=== PATIENT | female | born 1960 | race Caucasian/White ===

== ENCOUNTER 2016-05-25 16:15 | Emergency (ER) | payer MEDICARE, OTHER ==
[2016-05-25] MEDS: KETOROLAC TROMETHAMINE 60 MG/2 ML VIAL IM ONE (16:58)
[2016-05-25 17:07] LABS: BASOPHILS % 0.2 (0.0-1.5); EOSINOPHILS % 0.4 % (0.0-6.8); LYMPHOCYTES # 1.6 # k/uL (0.6-4.0); MEAN CORPUSCULAR HEMOGLOBIN 27.9 pg (28.0-34.0); MONOCYTES # 0.3 # k/uL (0.0-0.9); MONOCYTES % 2.7 % (0.0-11.0); NEUTROPHILS # 9.5 # k/uL (1.4-7.7)
[2016-05-25] MEDS: ONDANSETRON HCL 4 MG TAB.RAPDIS PO ONE (17:15)
[2016-05-25 17:19] LABS: eGFR (African) > 60; eGFR (Non-African) > 60
[2016-05-25 18:06] VITALS: BP 128/70
--- NOTE | 2016-05-25 18:25 | ED Physician Documentation ---
Sore Throat/Dental Pain - HISTORIAN Historian: patient - HPI Stated Complaint: sore throat, vomiting Chief Complaint: Sore Throat Onset: days ago (last night) Associated Symptoms: fever, chills, sore throat, severe, congestion, R ear pain , L ear pain, other (body aches). denies: runny nose - ROS CONST: no problems CVS/RESP: none GI/: nausea, vomiting (x1) MS/SKIN/LYMPH: denies: muscle aches, rash, leg swelling, ankle swelling NEURO/PSYCH: none - PAST HX Past History: gum disease Other History: other (HTN, depression, GERD, arthritis ) Allergies/Adverse Reactions: Allergies Allergy/AdvReac Type Severity Reaction Status Date / Time codeine [Codeine] Allergy Verified 03/14/16 18:54 meperidine HCl [From Demerol] Allergy Verified 03/14/16 18:54 morphine Allergy Verified 03/14/16 18:54 Penicillins Allergy Verified 03/14/16 18:54 Home Medications: Ambulatory Orders Medication Instructions Recorded Lisinopril [Prinivil] 40 mg PO DAILY 01/24/13 Aspirin [Violette] 81 mg PO DAILY 07/19/14 Trazodone HCl [Desyrel] 200 mg PO HS 11/11/14 Amlodipine Besylate 10 mg PO DAILY u2 08/20/15 Cyclobenzaprine HCl [Flexeril] 2 tab PO DAILY 10/31/15 Hydrocodone/Acetaminophen 1 tab PO DIRECTED 10/31/15 [Hydrocodon-Acetaminophen 5-325] Metoprolol Succinate [Toprol XL] 1 tab PO HS 10/31/15 Omeprazole [Omeprazole] 1 tab PO DAILY 10/31/15 Baclofen [Lioresal] 10 mg PO TID PRN #30 tablet 11/10/15 Azithromycin [Zithromax] 250 mg PO DAILY #6 tablet 05/25/16 - SOCIAL HX Smoking History: cigarettes - FAMILY HX Family History: No - VITAL SIGNS Vital Signs: Vital Signs Temp Pulse Resp BP Pulse Ox 100.1 F H 104 H 16 128/70 94 05/25/16 17:45 05/25/16 17:45 05/25/16 17:45 05/25/16 17:45 05/25/16 17:45 - REVIEWED ASSESSMENTS Nursing Assessment Reviewed: Yes Vitals Reviewed: Yes ED Results Lab/Radiology - Lab Results Lab Results: Lab Results 05/25/16 05/25/16 16:55 16:55 WBC 11.60 K/ul K/ul (4.00-12.00) RBC 4.55 M/ul M/ul (3.90-5.20) Hgb 12.7 g/dL g/dL (12.0-16.0) Hct 39.6 % % (34.5-46.5) MCV 87.0 fl fl (80.0-100.0) MCH 27.9 pg L pg (28.0-34.0) MCHC 32.0 g/dL g/dL (30.0-36.0) RDW 13.1 % % (11.3-14.3) Plt Count 177 K/mm3 K/mm3 (130-400) Neut % (Auto) 81.7 % H % (39.0-79.0) Lymph % (Auto) 14.0 % L % (16.0-50.0) Beckham % (Auto) 2.7 % % (0.0-11.0) Eos % (Auto) 0.4 % % (0.0-6.8) Baso % (Auto) 0.2 (0.0-1.5) Neut # 9.5 # k/uL H # k/uL (1.4-7.7) Lymph # 1.6 # k/uL # k/uL (0.6-4.0) Beckham # 0.3 # k/uL # k/uL (0.0-0.9) Eos # 0.0 # k/uL # k/uL (0.0-0.6) Baso # 0.0 # k/uL # k/uL (0.0-0.5) Reactive Lymphs % 1.0 % % (0.0-5.0) Reactive Lymphs # 0.1 # k/uL # k/uL (0.0-0.8) Sodium 132 mmol/L L mmol/L (136-145) Potassium 3.9 mmol/L mmol/L (3.5-5.0) Chloride 92 mmol/L L mmol/L (98-110) Carbon Dioxide 31 mmol/L mmol/L (20-32) BUN 19 mg/dL mg/dL (10-26) Creatinine 1.0 mg/dL mg/dL (0.4-1.5) Estimated Creat Clear 95 Est GFR ( Amer) > 60 (60 - ) Est GFR (Non-Af Amer) > 60 (60 - ) Glucose 255 mg/dL H mg/dL (70-99) Calcium 9.7 mg/dL mg/dL (8.5-10.5) Total Bilirubin 0.7 mg/dL mg/dL (0.2-1.2) AST 15 U/L U/L (0-41) ALT 18 U/L U/L (0-45) Alkaline Phosphatase 105 U/L U/L (46-116) Total Protein 8.0 g/dL g/dL (6.0-8.5) Albumin 5.0 g/dL g/dL (3.0-5.5) - Orders Orders: ED Orders Category Date Time Status CBC/PLATELET/DIFF Routine Lab 05/25/16 16:55 Completed CMP Routine Lab 05/25/16 16:55 Completed INFLUENZA A&B Stat Lab 05/25/16 Uncollected Rapid Strep [GRP A STREP SCREEN] Stat Lab 05/25/16 Ordered Ketorolac Tromethamine [Toradol] Med 05/25/16 16:54 Discontinued 60 mg IM NOW ONE Ondansetron HCl Rapdis [Zofran Odt] Med 05/25/16 17:13 Discontinued 4 mg PO NOW ONE Sore throat Physical Exam - EXAM General Appearance: moderate distress Mouth/Throat: lips nml, gums nml, voice nml, no drooling, no air way problems, no thrush, membranes nml, pharyngeal erythema. No: tonsillar exudate Respiratory: no resp. distress, breath sounds nml CVS: reg. rate & rhythm, heart sounds nml Abdomen: soft, no organomegaly, normal bowel sounds, no abdominal bruit, no distension Extremities: non-tender, nml ROM Skin: normal color, warm/dry, NR, INT, PAL, DR Neuro/Psych: oriented x3, mood/affect nml Discharge Clincal Impression: Strep pharyngitis Prescriptions: Azithromycin [Zithromax] 250 mg PO DAILY #6 tablet Additional Instructions: Chloraseptic spray or lozenges as needed for throat pain. Warm salt water gargles as needed pain Increase your fluid intake juices, hot tea, non-caffeinated beverages If you are congested - You may want to try Vicks rub on your chest and/or feet Use a humidifier in the room where you sleep. You can also sit in a steam filled bathroom 1-2 times a day. Tylenol or Ibuprofen as needed for fever, pain and body aches. Home Medications: Ambulatory Orders Lisinopril [Prinivil] 40 mg PO DAILY 01/24/13 Aspirin [Violette] 81 mg PO DAILY 07/19/14 Trazodone HCl [Desyrel] 200 mg PO HS 11/11/14 Amlodipine Besylate 10 mg PO DAILY u2 08/20/15 Cyclobenzaprine HCl [Flexeril] 2 tab PO DAILY 10/31/15 Hydrocodone/Acetaminophen [Hydrocodon-Acetaminophen 5-325] 1 tab PO DIRECTED 10/31/15 Metoprolol Succinate [Toprol XL] 1 tab PO HS 10/31/15 Omeprazole [Omeprazole] 1 tab PO DAILY 10/31/15 Baclofen [Lioresal] 10 mg PO TID PRN #30 tablet 11/10/15 Azithromycin [Zithromax] 250 mg PO DAILY #6 tablet 05/25/16 Condition: Stable Disposition: 01 HOME, SELF-CARE Decision to Admit: NO Decision Time: 17:30
== END 2016-05-25 17:45 | disposition home or self-care (01) ==
LOC: ED 16:15
DX: J02.0 Streptococcal pharyngitis (principal)
CPT/HCPCS: 80053; 85025; 96372; 99283; J1885; A9270

== ENCOUNTER 2016-11-28 15:45 | Outpatient (CLI) | payer MEDICARE, OTHER ==
[2016-11-28 16:29] LABS: eGFR (African) > 60; eGFR (Non-African) > 60
== END 2016-11-28 15:46 ==
LOC: LAB 15:45
PROVIDERS: ATTEND Family Medicine
DX: E11.9 Type 2 diabetes mellitus without complications (principal); I10 Essential (primary) hypertension
CPT/HCPCS: 36415; 80048; 83036

== ENCOUNTER 2017-03-13 14:42 | Outpatient (CLI) | payer MEDICARE, OTHER ==
--- NOTE | 2017-03-13 16:20 | Diagnostic Imaging Report ---
[facility] [id number] [facility] [address] Report Submission Date: Mar 13, 2017 3:05:22 PM CDT Patient Study Name: PAL LANGLEY Date: Mar 13, 2017 2:56:05 PM CDT Modality Type: CR Gender: F Description: CHEST : 58 Institution: [facility] Physician: LAMAR CRAVEN - OP Examination: PA and lateral chest. History: Evaluate lung schneider. Comparison exam: None available for direct review Findings: PA lateral chest demonstrate a normal cardiac and mediastinal silhouette. No focal infiltrate. No blunting of the costophrenic margins. Osseous structures are appropriate for age. Cervical fixation hardware. Impression: No acute pulmonary process. Electronically signed on Mar 13, 2017 3:05:22 PM CDT by: Savage ARRIAGA
== END 2017-03-13 14:44 ==
LOC: LAB 14:42
PROVIDERS: ATTEND Family Medicine
DX: E11.9 Type 2 diabetes mellitus without complications (principal); J43.1 Panlobular emphysema
CPT/HCPCS: 36415; 71020; 83036

== ENCOUNTER 2017-03-16 22:48 | Emergency (ER) | payer MEDICARE, OTHER ==
[2017-03-16 23:14] VITALS: BP 172/87
[2017-03-16] MEDS ORDERED: KETOROLAC TROMETHAMINE 60 MG/2 ML VIAL IM ONE (23:21)
--- NOTE | 2017-03-16 23:26 | ED Physician Documentation ---
Upper Extremity Problem - HISTORIAN Historian: patient, child - HPI Stated Complaint: Shoulder pain Chief Complaint: Upper Extremity Problem Additional Information: c/o rt shoulder pain onset 1 yr ago hank guzmna has been in [facility] and out of alll meds-in process restatting them haskl taken naproxed in past w mixled relief. appears not consistently Location: R shoulder Onset: other (1yr- no new injuries and shoulder has been persistlent perhaps slightly worse past several days) Timing: still present, persistent since Duration: intermittent episodes (but fairly constant for 1 yr-NO ORTHO CONSUL) Where: home ([place]) Severity: moderate Associated Symptoms: denies: fever, chills, sweating, shortness of breath, difficulty breathing, chest pain Exacerbated By: change in position, exertion Relieved By: rest, positioning, other (naproxed - does not take narcoticsdue to prkobation bacause thats what put her in [facility] blefore) Quality: pain, tenderness, tingling - ROS CONST: no problems EYES/ENT: denies: problems with vision CVS/RESP: none. denies: chest pain, shortness of breath, palpitations GI/: none MS/SKIN/LYMPH: calf pain NEURO/PSYCH: headache - PAST HX Past History: none, diabetes Type 1, other (gerd) Other History: hypertension Allergies/Adverse Reactions: Allergies Allergy/AdvReac Type Severity Reaction Status Date / Time codeine [Codeine] Allergy Verified 03/14/16 18:54 meperidine HCl [From Demerol] Allergy Verified 03/14/16 18:54 morphine Allergy Verified 03/14/16 18:54 Penicillins Allergy Verified 03/14/16 18:54 Home Medications: Ambulatory Orders Medication Instructions Recorded Aspirin [Violette] 81 mg PO DAILY 07/19/14 Trazodone HCl [Desyrel] 200 mg PO HS 11/11/14 Amlodipine Besylate 10 mg PO DAILY u2 08/20/15 Metoprolol Succinate [Toprol XL] 1 tab PO HS 10/31/15 Omeprazole [Omeprazole] 1 tab PO DAILY 10/31/15 Budesonide/Formoterol Fumarate 10.2 gm IH DAILY 11/28/16 [Symbicort 160-4.5 Mcg Inhaler] - SOCIAL HX Smoking History: greater than 1 pack/day Alcohol Use: none Drug Use: none - FAMILY HX Family History: no significant history - VITAL SIGNS Vital Signs: Vital Signs Temp Pulse Resp BP Pulse Ox 98.3 F 81 20 172/87 97 03/16/17 23:00 03/16/17 23:00 03/16/17 23:00 03/16/17 23:00 03/16/17 23:00 - REVIEWED ASSESSMENTS Nursing Assessment Reviewed: Yes Vitals Reviewed: Yes ED Results Lab/Radiology - Orders Orders: ED Orders Category Date Time Status Ketorolac Tromethamine [Toradol] Med 03/16/17 23:21 Once 60 mg IM NOW ONE Upper Extremity Problem - EXAM General Appearance: mild distress, anxious Skin: warm/dry, normal color. No: cyanosis, diaphoresis, jaundice Shoulder Exam: No: non-tender (subjectively no sig swelling or color change) Elbow/Forearm Exam: normal inspection Wrist Exam: normal inspection, nodules CVS: reg rate & rhythm, heart sounds normal, equal pulses, no murmur Vascular: no vascular compromise. No: abnml capillary refill, pulse deficit Peripheral: sensation nml, motor nml. No: altered sensation Central: oriented X3, motor nml, sensation nml, mood/affect nml, cognition normal Respiratory: no resp. distress, breath sounds nml, right arm (and shoulder estela shoulder) Abdomen: non-tender Discharge Clincal Impression: chronic rt shoulder pain Referrals: Thom Schreiber MD [Primary Care Provider] - 2 Days Comments: see orthopedic surfgeon soon probably needS MRI Disposition: 01 HOME, SELF-CARE Decision to Admit: NO Decision Time: 23:35
== END 2017-03-16 23:40 | disposition home or self-care (01) ==
LOC: ED 22:48
DX: M25.511 Pain in right shoulder (principal)
CPT/HCPCS: 96372; 99283; J1885

== ENCOUNTER 2017-07-03 15:04 | Outpatient (CLI) | payer MEDICARE, OTHER | END 2017-07-03 15:05 | LOC: LAB 15:04 | PROVIDERS: ATTEND Family Medicine | DX: E11.9 Type 2 diabetes mellitus without complications (principal) | CPT/HCPCS: 36415; 83036 ==

== ENCOUNTER 2017-09-11 14:24 | Outpatient (CLI) | payer MEDICARE, OTHER | END 2017-09-11 14:25 | LOC: LAB 14:24 | PROVIDERS: ATTEND Family Medicine | DX: E11.9 Type 2 diabetes mellitus without complications (principal) | CPT/HCPCS: 36415; 83036 ==

== ENCOUNTER 2017-11-24 13:56 | Outpatient (CLI) | payer MEDICARE, OTHER | END 2017-11-24 13:58 | LOC: LAB 13:56 | PROVIDERS: ATTEND Family Medicine | DX: E11.9 Type 2 diabetes mellitus without complications (principal) | CPT/HCPCS: 36415; 83036 ==

== ENCOUNTER 2018-01-19 22:11 | Emergency (ER) | payer MEDICARE, OTHER ==
[2018-01-19] MEDS ORDERED: DOXYCYCLINE MONOHYDRATE 100 MG CAPSULE PO ONE (22:45)
[2018-01-19] MEDS ORDERED: HYDROcodone /APAP 5/325 1 EACH TABLET PO ONE (22:46)
--- NOTE | 2018-01-19 22:55 | ED Physician Documentation ---
General Adult - HISTORIAN Historian: patient - HPI Stated Complaint: "My left breast has a knot and it hurts". Chief Complaint: General Adult Additional Information: Feels like she has a baseball in left breast. Has had a mass there for years. For a week, the mass has been larger and she has felt sick. Has spent a lot of time in bed. She has felt so bad she has not bathed in a week. IDDM, with FSG 195 in the ER. Has felt feverish at times. No treatment attempted. N modifying factors or other associated signs. - ROS CONST: fever (feverish) - PAST HX Past History: other (IDDM, depression) Allergies/Adverse Reactions: Allergies Allergy/AdvReac Type Severity Reaction Status Date / Time codeine [Codeine] Allergy Verified 01/19/18 22:24 meperidine HCl [From Demerol] Allergy Verified 01/19/18 22:24 morphine Allergy Verified 01/19/18 22:24 Penicillins Allergy Verified 01/19/18 22:24 Home Medications: Ambulatory Orders Medication Instructions Recorded Aspirin [Violette] 81 mg PO DAILY 07/19/14 Trazodone HCl [Desyrel] 200 mg PO HS 11/11/14 Doxycycline Hyclate [Vibramycin] 100 mg PO Q12H #20 capsule 01/19/18 - SOCIAL HX Smoking History: cigarettes - FAMILY HX Family History: No - VITAL SIGNS Vital Signs: Vital Signs Temp Pulse Resp BP Pulse Ox 98.1 F 66 16 160/85 98 01/19/18 22:15 01/19/18 22:15 01/19/18 22:15 01/19/18 22:15 01/19/18 22:15 - REVIEWED ASSESSMENTS Nursing Assessment Reviewed: Yes Vitals Reviewed: Yes ED Results Lab/Radiology - Orders Orders: ED Orders Category Date Time Status Doxycycline Monohydrate [Vibramycin] Med 01/19/18 22:45 Once 100 mg PO NOW ONE HYDROcodone /APAP 5/325 [[place] 5/325] Med 01/19/18 22:46 Once 2 each PO NOW ONE General Adult Physical Exam - PHYSICAL EXAM GENERAL APPEARANCE: mild distress EENT: eye inspection normal, ENT inspection normal (except poor dentition) NECK: normal inspection RESPIRATORY: no resp distress, breath sounds normal CVS: reg rate & rhythm, heart sounds normal. No: tachycardia ABDOMEN: soft, normal bowel sounds, non-tender BACK: normal inspection SKIN: warm/dry, normal color, other (scattered abrasions feet and lower legs. Irregular 2-2.5 cm mass left breast with it's center point at 7 o'clock. Comedones scattered about distal breast on the left. ) NEURO: CN's nml as tested, motor nml, cognition normal Discharge Clincal Impression: Abscess of left breast Prescriptions: Doxycycline Hyclate [Vibramycin] 100 mg PO Q12H #20 capsule Referrals: Thom Schreiber MD [Primary Care Provider] - 2 Days Condition: Fair Disposition: HOME, SELF-CARE Decision to Admit: NO Decision Time: 23:00
[2018-01-19 23:18] VITALS: BP 131/77
== END 2018-01-19 23:10 | disposition home or self-care (01) ==
LOC: ED 22:11
DX: N61.1 Abscess of the breast and nipple (principal)
CPT/HCPCS: 99283; A9270-GY

== ENCOUNTER 2018-01-24 14:07 | Outpatient (CLI) | payer MEDICARE, OTHER | END 2018-01-24 14:10 | LOC: LAB 14:07 | PROVIDERS: ATTEND Family Medicine | DX: E11.9 Type 2 diabetes mellitus without complications (principal) | CPT/HCPCS: 36415; 83036 ==

== ENCOUNTER 2018-03-30 18:09 | Inpatient (IN) | payer MEDICARE, OTHER ==
--- NOTE | 2018-03-30 18:32 | ED Physician Documentation ---
Abscess - HISTORIAN Historian: patient - HPI Stated Complaint: Left breast abscesses Chief Complaint: Abscess Additional Information: Patient with a past medical history of DM2, HTN presented to ED with a 2 month history of left breast cellulitis with abscesses. Patient states she has completed a course of Clindamycin and Doxycycline over the past 2 moths. She states she completed doxycycline about 2 weeks ago. Patient states the antibiotics help initially but the redness in her left breast never has gone away. She reports fever 102.0. Onset: days ago (60) Timing: still present Duration: worse Location: other (left breast) Where: home Context: Medication Exposure: none Context: Food Exposure: none - ROS CONST: fever, chills CVS/RESP: none. denies: chest pain, shortness of breath EYES/ENT: none GI/: denies: vomiting, nausea MS/SKIN/LYMPH: denies: rash NEURO/PSYCH: denies: headache - PAST HX Past History: diabetes Type 2, hypertension Other History: other (chronic bells palsy) Surgeries/Procedures: Yes (multiple ortho) Allergies/Adverse Reactions: Allergies Allergy/AdvReac Type Severity Reaction Status Date / Time codeine [Codeine] Allergy Verified 01/19/18 22:24 meperidine HCl [From Demerol] Allergy Verified 01/19/18 22:24 morphine Allergy Verified 01/19/18 22:24 Penicillins Allergy Verified 01/19/18 22:24 Home Medications: Ambulatory Orders Medication Instructions Recorded Aspirin [Violette] 81 mg PO DAILY 07/19/14 Albuterol Sulfate [Ventolin HFN] 2.5 inh PO Q4-6 03/30/18 Trazodone HCl 100 mg PO HS 03/30/18 - SOCIAL HX Smoking History: cigarettes, greater than 1 pack/day - FAMILY HX Family History: none - VITAL SIGNS Vital Signs: Vital Signs Temp Pulse Resp BP Pulse Ox 131/77 01/19/18 22:55 - REVIEWED ASSESSMENTS Nursing Assessment Reviewed: Yes Vitals Reviewed: Yes Progress - Progress Progress: 1838 Discussed with Jia ORDAZ with Dr. Schreiber. Agrees with admission. ED Results Lab/Radiology - Orders Orders: ED Orders Category Date Time Status Place IV Lock 1T Care 03/30/18 18:27 Active BLOOD CULTURE Stat Lab 03/30/18 Ordered CMP Routine Lab 03/30/18 Ordered WOUND CULTURE Urgent Lab 03/30/18 Uncollected Vancomycin HCl [Vancocin] 1.25 gm Med 03/30/18 18:43 Active 0.9 % Sodium Chloride [Normal Saline] 500 ml IV NOW Abscess Physical Exam - EXAM General Appearance: no acute distress, alert Skin: abscess (2- draining), erythema Location: other (left breast just below nipple) Symptoms: warmth, tenderness, swelling, induration, thickening, well defined border, weeping Extremities: no edema EENT: eyes nml inspection Neck: No: stiff neck, lymphadenopathy Respiratory: no resp distress, chest non-tender, breath sounds normal CVS: reg. rate & rhythm, heart sounds nml Abdomen: non-tender, nml bowel sounds. No: tenderness Neuro/Psych: oriented x3, motor nml Discharge Clincal Impression: Cellulitis of left breast, Left breast abscess, Failure of outpatient treatment Condition: Stable Disposition: ADMITTED INPATIENT Decision to Admit: [id number] Date of Decison to Admit: 03/30/18 Decision Time: 18:39
[2018-03-30] MEDS ORDERED: VANCOMYCIN HCL 1.25 GM in 0.9 % SODIUM CHLORIDE 500 ML IV ONE (18:43)
[2018-03-30] MEDS ORDERED: ONDANSETRON HCL/PF 4 MG/ 2ML VIAL IVP PRN (18:51)
[2018-03-30] MEDS: 0.9 % SODIUM CHLORIDE 1,000 ML IV SCH (19:07)
[2018-03-30 19:25] LABS: BASOPHILS % 0.3 (0.0-1.5); MEAN CORPUSCULAR HEMOGLOBIN 27.2 pg (28.0-34.0); MONOCYTES % 4.6 % (0.0-11.0); NEUTROPHILS # 4.7 # k/uL (1.4-7.7)
[2018-03-30] MEDS ORDERED: KETOROLAC TROMETHAMINE 30 MG/1ML VIAL IVP PRN (19:47)
[2018-03-30 19:49] LABS: eGFR (Non-African) > 60
[2018-03-30] MEDS ORDERED: traMADol HCL 50 MG TABLET ONE (20:49)
[2018-03-30] MEDS: ACETAMINOPHEN 325 MG TABLET PO PRN (20:55)
[2018-03-30] MEDS: traMADol HCL 50 MG TABLET PO PRN (20:55)
[2018-03-30] MEDS ORDERED: INSULIN DETEMIR 100 UNIT/ML 3ML PEN.INJCTR SQ SCH (21:00)
[2018-03-30] MEDS ORDERED: HEPARIN SODIUM 5000 UNIT/1 ML SQ SCH (21:00)
[2018-03-30] MEDS ORDERED: INSULIN REGULAR, HUMAN 100 UNIT/ML 3ML VIAL SQ SCH (21:00)
[2018-03-30] MEDS: traZODone HCL 50 MG TABLET PO SCH (22:46)
[2018-03-30] MEDS: DULoxetine HCL 30 MG CAPSULE.DR PO SCH (22:46)
[2018-03-30] MEDS: ENOXAPARIN SODIUM 40 MG/0.4 ML DISP.SYRIN SQ SCH (23:15)
[2018-03-30] MEDS: METOPROLOL SUCCINATE 50 MG TAB.ER.24H PO SCH (23:16)
[2018-03-30] MEDS: VANCOMYCIN HCL 1 GM in 0.9 % SODIUM CHLORIDE 250 ML IV SCH (23:17)
[2018-03-30] MEDS: VANCOMYCIN PHARMACY TO DOSE IV SCH (23:19)
[2018-03-30] MEDS: ceFAZolin SODIUM 1 GM VIAL IVP SCH ×2 (23:20→23:51)
[2018-03-30] MEDS: INSULIN REGULAR, HUMAN 100 UNIT/ML 3ML VIAL SQ SCH (23:22)
[2018-03-30] MEDS: INSULIN GLARGINE,HUM.REC.ANLOG 100 UNIT/ML PEN.INJCTR SQ SCH (23:44)
[2018-03-31 02:23] VITALS: BMI 35.9
[2018-03-31] MEDS: traMADol HCL 50 MG TABLET PO PRN ×3 (06:03→21:54)
[2018-03-31] MEDS: ACETAMINOPHEN 325 MG TABLET PO PRN ×3 (06:03→21:54)
[2018-03-31] MEDS: PANTOPRAZOLE SODIUM 40 MG TABLET.DR PO SCH (06:07)
[2018-03-31] MEDS: ceFAZolin SODIUM 1 GM VIAL IVP SCH ×3 (06:08→17:30)
[2018-03-31] MEDS: 0.9 % SODIUM CHLORIDE 1,000 ML IV SCH ×2 (06:12→19:32)
[2018-03-31 07:41] LABS: BASOPHILS % 0.3 (0.0-1.5); EOSINOPHILS % 3.3 % (0.0-6.8); MONOCYTES % 5.2 % (0.0-11.0); NEUTROPHILS # 3.5 # k/uL (1.4-7.7)
[2018-03-31] MEDS: INSULIN REGULAR, HUMAN 100 UNIT/ML 3ML VIAL SQ SCH ×4 (07:48→13:11)
[2018-03-31 07:51] LABS: eGFR (Non-African) > 60
[2018-03-31] MEDS: INSULIN GLARGINE,HUM.REC.ANLOG 100 UNIT/ML PEN.INJCTR SQ SCH ×2 (08:23→22:03)
[2018-03-31] MEDS: CITALOPRAM HYDROBROMIDE 20 MG TABLET PO SCH (08:29)
[2018-03-31] MEDS: ASPIRIN 81 MG CHEW TAB PO SCH (08:29)
[2018-03-31] MEDS: ARIPIPRAZOLE 2 MG TABLET PO SCH (08:29)
[2018-03-31] MEDS: FLUTICASONE PROPIONATE 120 SPRAY/16 GR BOTTLE NS SCH ×2 (08:30→21:55)
[2018-03-31] MEDS: CYCLOBENZAPRINE HCL 5 MG TABLET PO SCH (08:30)
[2018-03-31] MEDS: ENOXAPARIN SODIUM 40 MG/0.4 ML DISP.SYRIN SQ SCH ×2 (08:31→21:55)
[2018-03-31] MEDS: amLODIPine BESYLATE 5 MG TABLET PO SCH (08:31)
[2018-03-31] MEDS: HYDROCHLOROTHIAZIDE 25 MG TABLET PO SCH (08:31)
[2018-03-31] MEDS: VANCOMYCIN PHARMACY TO DOSE IV SCH (10:22)
--- NOTE | 2018-03-31 10:22 | History and Physical Report ---
History of Present Illnes - History of Present Illness Reason for Visit: Cellulitis - failed outpatient therapy History of Present Illness: 57 year old female presented to the ER for draining abscess of her left breast. She states she has had symptoms for the last 1 month. She has had two rounds of antibiotics as an outpatient. She states at the beginning of February she was started on Doxycycline for 10 days. She states she completed the course and was doing a little better but notes the area was still draining and red. She sates she was seen again and started on Clindamycin for 10 days. She notes she finished that course of antibiotics a few days ago and thinks that the redness is still continuing to spread. She states she had a fever off and on initially but has not had a fever since being on the antibiotics. She sates last night the pain in her breast was really bothering her and that was really what brought her in today. She has a history of hidradenitis suppurativa and gets abscesses frequently. She states this infection started as a very small abscess under her breast and now is completely surrounding her left areola with redness spreading up her breast. She notes she is diabetic. She states her blood sugars have been fairly well controlled she states usually run in the low 200s with the highest reading in the last two weeks being around 260. She notes a history of HTN but states her blood pressures are well controlled on medication. She has had a flu shot for the immunization season. She denies any fever, chills, nausea, vomiting or other concerns today. - Past Medical History Cardiac: HTN ORGANIZATION DEVELOPMENT CONSULTANT: Other ( stenosis of the cervical spine) Psych: Anxiety, Depression Endocrine: Diabetes Dermatology: Other (Hidradenitis suppurativa) - Past Surgical History Past Surgical History: Cholecystectomy, (x3), Total Knee Replacement (Right), Other (cervical fusion) - Past Social History Smoke: 1 pack per day Alcohol: Occassional Lives: Alone (with dog) - Health Maintenance Health Maintenance: Influenza Vaccine (current for this season) Pneumonia Vaccine: No Resuscitation Status: Resusciation Status Resuscitation Status Full Code Review of Systems - Review of Systems Constitutional: negative: Fever, Chills Eyes: negative: vision change ENT: negative: Ear Pain, Throat Pain Respiratory: negative: Cough, Shortness of Breath Cardiovascular: negative: Chest Pain, Palpitations Gastrointestinal: negative: Nausea, Vomiting, Abdominal Pain, Diarrhea Genitourinary: negative: Dysuria Musculoskeletal: Neck Pain (chronic) Skin: Other (draining abdscess and redness of left breast) Neurological: negative: Weakness, Change in Speech - Medications/Allergies Allergies/Adverse Reactions: Allergies Allergy/AdvReac Type Severity Reaction Status Date / Time codeine [Codeine] Allergy Verified 03/30/18 21:15 meperidine HCl [From Demerol] Allergy Verified 03/30/18 21:15 morphine Allergy Verified 03/30/18 21:15 Penicillins Allergy Verified 03/30/18 21:15 Home Medications: Home Medications Albuterol Sulfate [Ventolin HFN] 2.5 inh PO Q4-6 03/30/18 Trazodone HCl 100 mg PO HS 03/30/18 Current Inpatient Medications: Current Inpatient Medications Acetaminophen (Tylenol) 650 mg PO Q4 PRN PRN Reason: Fever > 102 Last Admin: 03/31/18 06:03 Dose: 650 mg Amlodipine Besylate (Norvasc) 10 mg PO DAILY [facility] Last Admin: 03/31/18 08:31 Dose: 10 mg Aripiprazole (Abilify) 2 mg PO D [facility] Last Admin: 03/31/18 08:29 Dose: Not Given Aspirin (Aspirin) 81 mg PO DAILY [facility] Last Admin: 03/31/18 08:29 Dose: 81 mg Cefazolin Sodium (Ancef) 1 gm IVP Q6 [facility] Last Admin: 03/31/18 06:08 Dose: 1 gm Citalopram Hydrobromide (Celexa) 40 mg PO DAILY [facility] Last Admin: 03/31/18 08:29 Dose: 40 mg Cyclobenzaprine HCl (Flexeril) 10 mg PO DAILY [facility] Last Admin: 03/31/18 08:30 Dose: 10 mg Duloxetine HCl (Cymbalta) 60 mg PO HS [facility] Last Admin: 03/30/18 22:46 Dose: 60 mg Enoxaparin Sodium (Lovenox) 40 mg SQ Q12 [facility] Stop: 04/13/18 20:59 Last Admin: 03/31/18 08:31 Dose: 40 mg Fluticasone Propionate (Flonase Nasal [place]) 2 spray NS BID [facility] Last Admin: 03/31/18 08:30 Dose: Not Given Hydrochlorothiazide (Hydrodiuril) 25 mg PO DAILY [facility] Last Admin: 03/31/18 08:31 Dose: 25 mg Sodium Chloride (Normal Saline) 1,000 mls @ 60 mls/hr IV Q10H [facility] Last Admin: 03/31/18 06:12 Dose: 60 mls/hr Vancomycin HCl 1 gm/ Sodium (Chloride) 250 mls @ 200 mls/hr IV Q12H [facility] Stop: 04/13/18 21:59 Last Admin: 03/30/18 23:17 Dose: Not Given Insulin Glargine (Basaglar Kwik-Pen) 50 unit SQ BID [facility] Last Admin: 03/31/18 08:23 Dose: 50 units Insulin Human Regular (Humulin R) 0 unit SQ CHEMQID [facility]; Protocol Last Admin: 03/31/18 07:48 Dose: 2 units Insulin Human Regular (Humulin R) 2 unit SQ ACHS [facility] Last Admin: 03/31/18 08:13 Dose: 2 units Lisinopril (Prinivil) 40 mg PO DAILY [facility] Metoprolol Succinate (Toprol Xl) 50 mg PO HS [facility] Last Admin: 03/30/18 23:16 Dose: 50 mg Miscellaneous (Vancomycin Pharmacy To Dose) 1 each IV DAILY [facility] Last Admin: 03/30/18 23:19 Dose: 1 each Ondansetron HCl (Zofran 4 Mg/2 Ml) 4 mg IVP Q6H PRN PRN Reason: Nausea / Vomiting Pantoprazole Sodium (Protonix) 40 mg PO 0700 [facility] Last Admin: 03/31/18 06:07 Dose: 40 mg Tramadol HCl (Ultram) 50 mg PO Q6H PRN PRN Reason: MODERATE PAIN Last Admin: 03/31/18 06:03 Dose: 50 mg Trazodone HCl (Desyrel) 100 mg PO [facility] Last Admin: 03/30/18 22:46 Dose: 100 mg Exam - Exam Vital Signs: Vital Signs (72 hours) 03/30/18 03/30/18 03/30/18 18:10 19:50 22:00 Temperature 97.5 F L 98.8 F 96.4 F L Pulse Rate [ 99 H 80 60 Right Pulse ox] Respiratory 18 18 16 Rate Blood Pressure 146/85 157/70 120/58 [Left Arm] O2 Sat by Pulse 99 94 97 Oximetry 03/31/18 03/31/18 03/31/18 05:39 07:07 09:59 Temperature 36.5 F L Pulse Rate [ 60 67 Right Pulse ox] Respiratory 16 16 16 Rate Blood Pressure 131/74 [Left Arm] O2 Sat by Pulse 93 Oximetry 03/31/18 10:00 Temperature 36.5 F L Pulse Rate [ 66 Right Pulse ox] Respiratory 16 Rate Blood Pressure 113/56 [Left Arm] O2 Sat by Pulse 98 Oximetry General: Alert, Oriented to Person, Oriented to Place, Oriented to Time, Cooperative, No acute distress, Obese HEENT: Atraumatic, EOMI Neck: Normal Range of Motion Lungs: Clear to auscultation, Normal air movement, Speaks full Sentences. No: Wheezes, Rhonchi Cardiovascular: Regular rate, No murmurs Abdomen: Normal bowel sounds, Soft, No tenderness Integumentary: Cellulitis (erythematous warm left breast extending up the chest. There area 4 areas that are open and draining around the areola. The areola is indurated and tender to palpation) Extremities: No edema, Other (Scar from right knee replacement) Neurological: Normal gait, Normal speech, Strength Equal Bilat, Normal tone Psych/Mental Status: Mental status NL, Mood NL, Appropriate Affect - Laboratory Results Laboratory Results: Laboratory Results 03/30/18 03/30/18 03/31/18 19:10 19:10 07:30 WBC 8.10 6.40 RBC 4.72 4.17 Hgb 12.8 11.3 L Hct 39.7 35.1 MCV 84.0 84.0 MCH 27.2 L 27.0 L MCHC 32.3 32.2 RDW 13.8 13.6 Plt Count 259 230 Neut % (Auto) 57.1 54.1 Lymph % (Auto) 35.0 37.1 [place] % (Auto) 4.6 5.2 Eos % (Auto) 3.0 3.3 Baso % (Auto) 0.3 0.3 Neut # (Auto) 4.7 3.5 Lymph # (Auto) 2.9 2.4 [place] # (Auto) 0.4 0.3 Eos # (Auto) 0.2 0.2 Baso # (Auto) 0.0 0.0 Sodium 141 Potassium 3.8 Chloride 96 L Carbon Dioxide 31 H BUN 22 H Creatinine 0.90 Estimated Creat Clear 109 Est GFR ( Amer) > 60 Est GFR (Non-Af Amer) > 60 Glucose 216 H Calcium 9.6 Total Bilirubin 0.2 AST 26 ALT 35 Alkaline Phosphatase 132 H Total Protein 8.3 H Albumin 4.2 03/31/18 07:30 WBC RBC Hgb Hct MCV MCH MCHC RDW Plt Count Neut % (Auto) Lymph % (Auto) [place] % (Auto) Eos % (Auto) Baso % (Auto) Neut # (Auto) Lymph # (Auto) [place] # (Auto) Eos # (Auto) Baso # (Auto) Sodium 138 Potassium 3.7 Chloride 100 Carbon Dioxide 29 BUN 18 H Creatinine 0.70 Estimated Creat Clear 140 Est GFR ( Amer) > 60 Est GFR (Non-Af Amer) > 60 Glucose 156 H Calcium 9.4 Total Bilirubin AST ALT Alkaline Phosphatase Total Protein Albumin Assessment/Plan - Assessment/Plan (1) Cellulitis of left breast Status: Acute Current Visit: Yes Assessment: Large cellulitis of the left breast involving the majority of the left breast and extending to the upper chest. The area is warm to the touch. The patient has been on two 10 day courses of antibiotics doxycycline and then clindamycin without improvement. Plan: IV Ancef and IV Vancomycin started. Will monitor symptoms and monitor for increasing erythema. So far patient has been afebrile and does not have a WBC count. (2) Abscess of left breast Status: Acute Current Visit: Yes Assessment: 4 open draining areas on the left breast. The entire breast is tender to touch. Plan: Patient would prefer that we avoid incision and drainage at this time. Will reevaluate tomorrow to see if there is any improvement after a couple of rounds of IV antibiotics. (3) Diabetes Status: Acute Current Visit: Yes Qualifiers: Diabetes mellitus type: type 2 Diabetes mellitus nursing home insulin use: with terminal block assembler use Diabetes mellitus complication status: with skin complications Diabetes mellitus complication detail: with other skin complication Qualified Code(s): E11.628 - Type 2 diabetes mellitus with other skin complications; Z79.4 - skilled nursing (current) use of insulin Assessment: Blood sugar was elevated on admission at 259. Patient reports elevated blood sugar at home ranging from low to upper 200s. Plan: Patient will be placed on sliding scale insulin regimen while she is here in addition to her basal insulin for tight glucose control to aid in healing. (4) HTN (hypertension) Status: Acute Current Visit: Yes Qualifiers: Hypertension type: essential hypertension Qualified Code(s): I10 - Essential (primary) hypertension Assessment: Blood pressure has been very well controlled since patient's arrival. Plan: Continue home meds and monitor BP throughout her stay. VTE Assessment - RISK FACTOR SCORE VTE RISK FACTOR SCORES: AGE 40-60 YEARS, ACUTE INFECTION OTHER THEN SEPSIS, SMOKER - RISK VTE HIGH RISK: SCORE OF 3-4 (RISK PROXIMAL DVT 4-8%) PROPHYLAXIS NEEDED
[2018-03-31] MEDS: LISINOPRIL 20 MG TABLET PO SCH (10:23)
[2018-03-31] MEDS: VANCOMYCIN HCL 1 GM in 0.9 % SODIUM CHLORIDE 250 ML IV SCH ×2 (10:23→22:08)
[2018-03-31] MEDS: INSULIN LISPRO 100 UNIT/ML 3ML VIAL SQ SCH ×3 (11:33→22:01)
[2018-03-31] MEDS ORDERED: 0.9 % SODIUM CHLORIDE 100 ML IV ONE ×2 (11:46→16:38)
[2018-03-31] MEDS: NICOTINE 21mg 1 EACH PATCH.TD24 TD SCH (17:30)
[2018-03-31] MEDS ORDERED: INSULIN GLARGINE,HUM.REC.ANLOG 100 UNIT/ML PEN.INJCTR SQ SCH (21:00)
[2018-03-31] MEDS: DULoxetine HCL 30 MG CAPSULE.DR PO SCH (21:53)
[2018-03-31] MEDS: traZODone HCL 50 MG TABLET PO SCH (21:53)
[2018-03-31] MEDS: METOPROLOL SUCCINATE 50 MG TAB.ER.24H PO SCH (21:54)
[2018-04-01] MEDS: ceFAZolin SODIUM 1 GM VIAL IVP SCH ×4 (00:24→17:54)
[2018-04-01] MEDS: 0.9 % SODIUM CHLORIDE 1,000 ML IV SCH ×3 (01:02→20:17)
[2018-04-01] MEDS: PANTOPRAZOLE SODIUM 40 MG TABLET.DR PO SCH (05:42)
[2018-04-01] MEDS: ACETAMINOPHEN 325 MG TABLET PO PRN ×3 (05:42→20:16)
[2018-04-01] MEDS: traMADol HCL 50 MG TABLET PO PRN ×3 (05:42→20:16)
[2018-04-01 07:38] LABS: eGFR (Non-African) > 60
[2018-04-01 07:39] LABS: BASOPHILS % 0.3 (0.0-1.5); MEAN CORPUSCULAR HEMOGLOBIN 27.4 pg (28.0-34.0); MONOCYTES % 4.2 % (0.0-11.0)
[2018-04-01] MEDS: INSULIN LISPRO 100 UNIT/ML 3ML VIAL SQ SCH ×4 (07:54→20:33)
[2018-04-01] MEDS: INSULIN GLARGINE,HUM.REC.ANLOG 100 UNIT/ML PEN.INJCTR SQ SCH ×2 (08:00→20:44)
[2018-04-01] MEDS: ENOXAPARIN SODIUM 40 MG/0.4 ML DISP.SYRIN SQ SCH ×2 (09:01→20:19)
[2018-04-01] MEDS: VANCOMYCIN PHARMACY TO DOSE IV SCH (09:01)
[2018-04-01] MEDS: HYDROCHLOROTHIAZIDE 25 MG TABLET PO SCH (09:01)
[2018-04-01] MEDS: CYCLOBENZAPRINE HCL 5 MG TABLET PO SCH (09:02)
[2018-04-01] MEDS: amLODIPine BESYLATE 5 MG TABLET PO SCH (09:02)
[2018-04-01] MEDS: LISINOPRIL 20 MG TABLET PO SCH (09:02)
[2018-04-01] MEDS: CITALOPRAM HYDROBROMIDE 20 MG TABLET PO SCH (09:02)
[2018-04-01] MEDS: ASPIRIN 81 MG CHEW TAB PO SCH (09:02)
[2018-04-01] MEDS: ARIPIPRAZOLE 2 MG TABLET PO SCH (09:03)
[2018-04-01] MEDS: FLUTICASONE PROPIONATE 120 SPRAY/16 GR BOTTLE NS SCH ×2 (09:04→20:20)
[2018-04-01] MEDS: NICOTINE 21mg 1 EACH PATCH.TD24 TD SCH (09:05)
[2018-04-01] MEDS: VANCOMYCIN HCL 1 GM in 0.9 % SODIUM CHLORIDE 250 ML IV SCH ×2 (10:58→22:53)
--- NOTE | 2018-04-01 11:11 | Inpatient Progress Note ---
Subjective - Required Recertification Statement I anticipate X number of days because-include discharge plan: 2 - Review of Systems Events since last encounter: Patient was admitted after failing outpatient therapy for cellulitis with draining abscess. She has been given IV ancef and IV vancomycin for her symptoms. On admission her general hygiene was poor. She was showered and cleaned up after admission. Last night she was put in the [place] as well. She is diabetic and has been monitored and blood sugars have been well controlled during her stay so far. Her BPs dropped low overnight 88/51 with a heart rate of 56 bpm. Patient states she takes her metoprolol at bedtime each night. She was given 50mg of Metoprolol last night before bed. This morning BPs have risen back up to 120s/80s. Subjective: Patient complains of discomfort in her breast. She notes the lateral most open and draining area is very sore. She states the overall redness seems to be doing better today. She sates she is feeling well otherwise. She notes concern regarding her BP dropping overnight. She states when her BP was low she was feeling very tired but notes it was taken overnight. She denies any fever, chills, nausea, vomiting, abdominal pain, or other concerns today. General: Denies: Chills HEENT: Denies: Head Aches, Visual Changes, Sore Throat Cardiovascular: Denies: Chest Pain, Palpitations, Edema, Light Headedness Gastrointestinal: Denies: Nausea, Vomiting, Abdominal Pain, Diarrhea Neurological: Denies: Weakness, Change in Speech Objective - Exam Vitals and I&O: Vital Signs Temp 98.2 F 04/01/18 09:48 Pulse 62 04/01/18 09:48 Resp 20 04/01/18 09:48 BP 128/55 04/01/18 09:48 Pulse Ox 100 04/01/18 09:48 Intake & Output 03/31/18 03/31/18 04/01/18 11:59 23:59 11:59 Intake Total 3420 2920 2520 Balance 3420 2920 2520 Intake: IV 2880 1800 1920 Left Antecubital 2880 Left Hand 960 1920 right antecubital 840 Oral 540 1120 600 Other: Voiding Method Toilet Toilet Toilet # Voids 1 2 2 General: Alert, Oriented to Person, Oriented to Place, Oriented to Time, Cooperative, Obese HEENT: EOMI, Mouth Mucous membr. moist/[place], Dentition Normal. No: Pharyngeal Erythema Neck: Supple Lungs: Clear to auscultation, Normal air movement, Speaks full Sentences. No: Respiratory Distress, Wheezes, Rhonchi Cardiovascular: Regular rate, No murmurs Abdomen: Normal bowel sounds, Soft, No tenderness Extremities: No edema Skin: Cellulitis (erythema is receding and is only affecting the lower 1/3 of the left breast. There are still several (4) open and draining areas around the left breast that are very tender to palpation. Only a very small amount of purulent materal was expressed at time of exam today. ) Neurological: Normal gait, Normal speech, Strength Equal Bilat, Normal tone, Sensation intact Psych/Mental Status: Mental status NL, Mood NL, Appropriate Affect - Results Results: Laboratory Results WBC 6.80 K/ul (4.00-12.00) 04/01/18 06:30 RBC 3.74 M/ul (3.90-5.20) L 04/01/18 06:30 Hgb 10.3 g/dL (12.0-16.0) L 04/01/18 06:30 Hct 31.2 % (34.5-46.5) L 04/01/18 06:30 MCV 83.0 fl (80.0-100.0) 04/01/18 06:30 MCH 27.4 pg (28.0-34.0) L 04/01/18 06:30 MCHC 32.9 g/dL (30.0-36.0) 04/01/18 06:30 RDW 13.9 % (11.3-14.3) 04/01/18 06:30 Plt Count 198 K/mm3 (130-400) 04/01/18 06:30 Neut % (Auto) 59.1 % (39.0-79.0) 04/01/18 06:30 Lymph % (Auto) 33.4 % (16.0-50.0) 04/01/18 06:30 [place] % (Auto) 4.2 % (0.0-11.0) 04/01/18 06:30 Eos % (Auto) 3.0 % (0.0-6.8) 04/01/18 06:30 Baso % (Auto) 0.3 (0.0-1.5) 04/01/18 06:30 Neut # (Auto) 4.0 # k/uL (1.4-7.7) 04/01/18 06:30 Lymph # (Auto) 2.3 # k/uL (0.6-4.0) 04/01/18 06:30 [place] # (Auto) 0.3 # k/uL (0.0-0.9) 04/01/18 06:30 Eos # (Auto) 0.2 # k/uL (0.0-0.6) 04/01/18 06:30 Baso # (Auto) 0.0 # k/uL (0.0-0.5) 04/01/18 06:30 Sodium 137 mmol/L (136-145) 04/01/18 06:30 Potassium 3.7 mmol/L (3.5-5.1) 04/01/18 06:30 Chloride 103 mmol/L (98-107) 04/01/18 06:30 Carbon Dioxide 24 mmol/L (22-30) 04/01/18 06:30 BUN 17 mg/dL (7-17) 04/01/18 06:30 Creatinine 0.80 mg/dL (0.52-1.04) 04/01/18 06:30 Estimated Creat Clear 122 04/01/18 06:30 Est GFR ( Amer) > 60 (60-) 04/01/18 06:30 Est GFR (Non-Af Amer) > 60 (60-) 04/01/18 06:30 Glucose 110 mg/dL (74-106) H 04/01/18 06:30 Calcium 8.3 mg/dL (8.4-10.2) L 04/01/18 06:30 Total Bilirubin 0.2 mg/dL (0.2-1.3) 04/01/18 06:30 AST 29 U/L (15-46) 04/01/18 06:30 ALT 34 U/L (13-69) 04/01/18 06:30 Alkaline Phosphatase 87 U/L (38-126) 04/01/18 06:30 Total Protein 6.6 g/dL (6.3-8.2) 04/01/18 06:30 Albumin 3.4 g/dL (3.5-5.0) L 04/01/18 06:30 Assessment/Plan - Assessment/Plan (1) Cellulitis of left breast Status: Acute Current Visit: Yes Assessment: Surrounding erythema is improving but still involves about 1/3 of the breast. Open areas continue to drain and are tender to palpation. They are draining less. She has been afebrile throughout her stay. WBC count has not been elevated. She did fail two courses of outpatient antibiotics (10 days of doxycycline and 10 days of Clindamycin). Plan: Continue IV ancef and IV vancomycin. Will continue to monitor affected area. (2) Abscess of left breast Status: Acute Current Visit: Yes Assessment: Open areas are draining less and the surrounding erythema is slowly improving. (3) Diabetes Status: Acute Current Visit: Yes Qualifiers: Diabetes mellitus type: type 2 Diabetes mellitus fci insulin use: with fci use Diabetes mellitus complication status: with skin complications Diabetes mellitus complication detail: with other skin complication Qualified Code(s): E11.628 - Type 2 diabetes mellitus with other skin complications; Z79.4 - intermediate frame tender (current) use of insulin Assessment: Blood sugars have been well controlled throughout her stay with a fasting BS of 110 this morning. Plan: Continue basal and sliding scale insulin. Continue to monitor blood sugars. (4) HTN (hypertension) Status: Acute Current Visit: Yes Qualifiers: Hypertension type: essential hypertension Qualified Code(s): I10 - Essential (primary) hypertension Assessment: Blood pressure dropped low last night with the lowest reading of 88/51. Patient reports feeling very tired at this time. She took her Metropolol prior to going to bed which is when she reports taking the medication at home. Her heart rate also dropped into the 50s overnight. This morning BP have rise and were recorded at 120s/80s after her morning BP medications. Patient reports feeling well at time of interview and states she no longer feels tired like she did when her numbers were low. Plan: Discussed case with nursing staff. Nurse will check BP prior to administering the evening Metoprolol dose. Will hold dose if BP is lower than 130/80 and will monitor BP overnight.
[2018-04-01] MEDS: traZODone HCL 50 MG TABLET PO SCH (20:18)
[2018-04-01] MEDS: DULoxetine HCL 30 MG CAPSULE.DR PO SCH (20:19)
[2018-04-01] MEDS: METOPROLOL SUCCINATE 50 MG TAB.ER.24H PO SCH (20:19)
[2018-04-02] MEDS: ceFAZolin SODIUM 1 GM VIAL IVP SCH ×4 (00:40→17:46)
[2018-04-02] MEDS: PANTOPRAZOLE SODIUM 40 MG TABLET.DR PO SCH (05:57)
[2018-04-02] MEDS: traMADol HCL 50 MG TABLET PO PRN ×2 (06:00→14:58)
[2018-04-02] MEDS: ACETAMINOPHEN 325 MG TABLET PO PRN ×2 (06:00→14:58)
[2018-04-02] MEDS: INSULIN LISPRO 100 UNIT/ML 3ML VIAL SQ SCH ×4 (07:40→20:33)
[2018-04-02] MEDS: 0.9 % SODIUM CHLORIDE 1,000 ML IV SCH ×2 (08:03→16:45)
[2018-04-02] MEDS: HYDROCHLOROTHIAZIDE 25 MG TABLET PO SCH (10:00)
[2018-04-02] MEDS: NICOTINE 21mg 1 EACH PATCH.TD24 TD SCH (10:00)
[2018-04-02] MEDS: LISINOPRIL 20 MG TABLET PO SCH (10:01)
[2018-04-02] MEDS: FLUTICASONE PROPIONATE 120 SPRAY/16 GR BOTTLE NS SCH ×2 (10:01→20:33)
[2018-04-02] MEDS: ASPIRIN 81 MG CHEW TAB PO SCH (10:01)
[2018-04-02] MEDS: amLODIPine BESYLATE 5 MG TABLET PO SCH (10:02)
[2018-04-02] MEDS: ENOXAPARIN SODIUM 40 MG/0.4 ML DISP.SYRIN SQ SCH ×2 (10:02→20:34)
[2018-04-02] MEDS: CITALOPRAM HYDROBROMIDE 20 MG TABLET PO SCH (10:02)
[2018-04-02] MEDS: ARIPIPRAZOLE 2 MG TABLET PO SCH (10:03)
[2018-04-02] MEDS: CYCLOBENZAPRINE HCL 5 MG TABLET PO SCH (10:03)
[2018-04-02] MEDS: VANCOMYCIN PHARMACY TO DOSE IV SCH (10:03)
[2018-04-02] MEDS: INSULIN GLARGINE,HUM.REC.ANLOG 100 UNIT/ML PEN.INJCTR SQ SCH ×2 (10:17→20:32)
[2018-04-02] MEDS: VANCOMYCIN HCL 1 GM in 0.9 % SODIUM CHLORIDE 250 ML IV SCH ×2 (10:18→20:35)
[2018-04-02] MEDS ORDERED: 0.9 % SODIUM CHLORIDE 100 ML IV ONE (12:17)
--- NOTE | 2018-04-02 13:15 | Inpatient Progress Note ---
Subjective - Required Recertification Statement I anticipate X number of days because-include discharge plan: 1 - Review of Systems Events since last encounter: Flor's left breast is less red than on admission, but is still red and tender. Wound cultures were ordered on admission, however I can't find any results yet. She is currently on Vancomycin as well as Ancef. She remains afebrile and her white count is not elevated but her left breast is ulcerated. General: Denies: Chills, Night Sweats HEENT: Head Aches, Visual Changes Pulmonary: Denies: Dyspnea, Cough Cardiovascular: Denies: Chest Pain, Palpitations Gastrointestinal: Denies: Nausea, Vomiting Genitourinary: Denies: Dysuria Musculoskeletal: Other (left breast pain). Denies: Neck Pain Neurological: Denies: Change in Speech, Confusion Objective - Exam Vitals and I&O: Vital Signs Temp 98.2 F 04/02/18 08:59 Pulse 63 04/02/18 08:59 Resp 16 04/02/18 08:59 BP 105/56 04/02/18 08:59 Pulse Ox 95 04/02/18 08:59 Intake & Output 04/01/18 04/02/18 04/02/18 23:59 11:59 23:59 Intake Total 2720 1080 Output Total 2 Balance 2720 1078 Intake: IV 840 240 Left Hand 840 240 Oral 1880 840 Output: Urine 2 Other: Voiding Method Toilet Toilet # Voids 2 General: Alert, Oriented to Person, Oriented to Place, Oriented to Time HEENT: Atraumatic, PERRLA, EOMI Neck: Supple, No JVD Lungs: Clear to auscultation Cardiovascular: Regular rate Abdomen: Normal bowel sounds, Soft Extremities: No clubbing, No cyanosis Skin: Other (left breast is warm to the touch, and has an open ulcer at about 6:00.) Neurological: Normal gait, Normal speech Psych/Mental Status: Mental status NL - Results Results: Laboratory Results WBC 6.80 K/ul (4.00-12.00) 04/01/18 06:30 RBC 3.74 M/ul (3.90-5.20) L 04/01/18 06:30 Hgb 10.3 g/dL (12.0-16.0) L 04/01/18 06:30 Hct 31.2 % (34.5-46.5) L 04/01/18 06:30 MCV 83.0 fl (80.0-100.0) 04/01/18 06:30 MCH 27.4 pg (28.0-34.0) L 04/01/18 06:30 MCHC 32.9 g/dL (30.0-36.0) 04/01/18 06:30 RDW 13.9 % (11.3-14.3) 04/01/18 06:30 Plt Count 198 K/mm3 (130-400) 04/01/18 06:30 Neut % (Auto) 59.1 % (39.0-79.0) 04/01/18 06:30 Lymph % (Auto) 33.4 % (16.0-50.0) 04/01/18 06:30 [place] % (Auto) 4.2 % (0.0-11.0) 04/01/18 06:30 Eos % (Auto) 3.0 % (0.0-6.8) 04/01/18 06:30 Baso % (Auto) 0.3 (0.0-1.5) 04/01/18 06:30 Neut # (Auto) 4.0 # k/uL (1.4-7.7) 04/01/18 06:30 Lymph # (Auto) 2.3 # k/uL (0.6-4.0) 04/01/18 06:30 [place] # (Auto) 0.3 # k/uL (0.0-0.9) 04/01/18 06:30 Eos # (Auto) 0.2 # k/uL (0.0-0.6) 04/01/18 06:30 Baso # (Auto) 0.0 # k/uL (0.0-0.5) 04/01/18 06:30 ESR 33 03/31/18 07:30 Sodium 137 mmol/L (136-145) 04/01/18 06:30 Potassium 3.7 mmol/L (3.5-5.1) 04/01/18 06:30 Chloride 103 mmol/L (98-107) 04/01/18 06:30 Carbon Dioxide 24 mmol/L (22-30) 04/01/18 06:30 BUN 17 mg/dL (7-17) 04/01/18 06:30 Creatinine 0.80 mg/dL (0.52-1.04) 04/01/18 06:30 Estimated Creat Clear 122 04/01/18 06:30 Est GFR ( Amer) > 60 (60-) 04/01/18 06:30 Est GFR (Non-Af Amer) > 60 (60-) 04/01/18 06:30 Glucose 110 mg/dL (74-106) H 04/01/18 06:30 Calcium 8.3 mg/dL (8.4-10.2) L 04/01/18 06:30 Total Bilirubin 0.2 mg/dL (0.2-1.3) 04/01/18 06:30 AST 29 U/L (15-46) 04/01/18 06:30 ALT 34 U/L (13-69) 04/01/18 06:30 Alkaline Phosphatase 87 U/L (38-126) 04/01/18 06:30 Total Protein 6.6 g/dL (6.3-8.2) 04/01/18 06:30 Albumin 3.4 g/dL (3.5-5.0) L 04/01/18 06:30 Assessment/Plan - Assessment/Plan (1) Cellulitis of left breast Status: Acute Current Visit: Yes Assessment: lab is checking on cultures. If I can find oral medications that will treat her infection, I would like to get her home in the morning. (2) Hyperglycemia Status: Acute Current Visit: No Assessment: Continue current insulin regimen
[2018-04-02] MEDS: DULoxetine HCL 30 MG CAPSULE.DR PO SCH (20:33)
[2018-04-02] MEDS: traZODone HCL 50 MG TABLET PO SCH (20:33)
[2018-04-02] MEDS: METOPROLOL SUCCINATE 50 MG TAB.ER.24H PO SCH (20:35)
[2018-04-03] MEDS: ceFAZolin SODIUM 1 GM VIAL IVP SCH ×2 (00:28→05:55)
[2018-04-03] MEDS: 0.9 % SODIUM CHLORIDE 1,000 ML IV SCH (04:53)
[2018-04-03] MEDS: PANTOPRAZOLE SODIUM 40 MG TABLET.DR PO SCH (05:55)
[2018-04-03] MEDS: ACETAMINOPHEN 325 MG TABLET PO PRN (06:08)
[2018-04-03] MEDS: traMADol HCL 50 MG TABLET PO PRN (06:08)
[2018-04-03] MEDS: INSULIN LISPRO 100 UNIT/ML 3ML VIAL SQ SCH ×2 (07:17→11:04)
[2018-04-03 07:47] VITALS: BP 147/95
[2018-04-03] MEDS: ARIPIPRAZOLE 2 MG TABLET PO SCH (08:46)
[2018-04-03] MEDS: ASPIRIN 81 MG CHEW TAB PO SCH (08:46)
[2018-04-03] MEDS: ENOXAPARIN SODIUM 40 MG/0.4 ML DISP.SYRIN SQ SCH (08:46)
[2018-04-03] MEDS: INSULIN GLARGINE,HUM.REC.ANLOG 100 UNIT/ML PEN.INJCTR SQ SCH (08:46)
[2018-04-03] MEDS: CITALOPRAM HYDROBROMIDE 20 MG TABLET PO SCH (08:47)
[2018-04-03] MEDS: CYCLOBENZAPRINE HCL 5 MG TABLET PO SCH (08:47)
[2018-04-03] MEDS: NICOTINE 21mg 1 EACH PATCH.TD24 TD SCH (08:48)
[2018-04-03] MEDS: LISINOPRIL 20 MG TABLET PO SCH (08:48)
[2018-04-03] MEDS: amLODIPine BESYLATE 5 MG TABLET PO SCH (08:48)
[2018-04-03] MEDS: FLUTICASONE PROPIONATE 120 SPRAY/16 GR BOTTLE NS SCH (08:48)
[2018-04-03] MEDS: HYDROCHLOROTHIAZIDE 25 MG TABLET PO SCH (08:48)
[2018-04-03] MEDS: VANCOMYCIN PHARMACY TO DOSE IV SCH (08:50)
[2018-04-03] MEDS: VANCOMYCIN HCL 1 GM in 0.9 % SODIUM CHLORIDE 250 ML IV SCH (10:01)
--- NOTE | 2018-04-04 08:46 | Discharge Summary ---
DATE OF ADMISSION: March 30, 2018 DATE OF DISCHARGE: April 03, 2018 DIAGNOSES ON THIS HOSPITALIZATION: 1. Diabetes mellitus type 2. 2. Cellulitis of left breast. 3. Hyperglycemia. 4. Hidradenitis suppurativa. SUMMARIZATION OF ADMISSION HISTORY AND HISTORY: This is a 57-year-old female who presented to the emergency room department on the evening of March 30, 2018, with the complaint of having increased drainage and redness of her left breast. She was not febrile at the time of admission; however, she was alarmed because the redness was spreading significantly and at a fairly rapid pace. She had been treated as an outpatient with doxycycline and clindamycin without significant improvement in her symptoms and this prompted her to come to the emergency department for an evaluation. HOSPITAL COURSE: She was admitted. Blood and urine cultures were obtained; however, for reasons that are unclear, those were not received by the reference lab until 3 days later, so we do not have those for guiding her discharge antibiotic therapy. She was started on Ancef and vancomycin. She had pretty rapid improvement in her symptoms. Her left breast did stop draining. The redness began to recede. She was discharged to home today with continuation of all of her medications with the addition of Bactrim DS 1 p.o. b.i.d. for 7 days with the possibility this may be MRSA. Also, I did place her on azithromycin 250 mg p.o. daily also, as she is penicillin allergic. MEDICATIONS ON DISCHARGE: 1. Amlodipine 10 mg p.o. daily. 2. Abilify 2 mg daily. 3. Aspirin 81 mg daily. 4. Antibiotics as previous stated above. 5. Citalopram 40 mg daily. 6. Flexeril 10 mg daily. 7. Duloxetine 60 mg at bedtime. 8. Flonase 2 sprays each nostril in the a.m. 9. Hydrochlorothiazide 25 mg daily. 10. Lantus 50 units subcutaneous b.i.d. 11. Sliding scale Humalog. 12. Lisinopril 40 mg daily.. 13. Metoprolol XL 50 mg at bedtime. 14. Pantoprazole 40 mg daily. 15. Trazodone 100 mg at bedtime. Tramadol was not continued on discharge. DISCHARGE INSTRUCTIONS: 1. She will follow up with Dr. Schreiber next week. 2. I will make her an appointment with Dr. Grimes, her breast surgeon, for an evaluation as soon as I can get her in to see him also. CONDITION ON DISCHARGE: She was discharged to home in improved condition. [place]
== END 2018-04-03 12:35 | disposition home or self-care (01) | DRG 639 ==
LOC: ED 18:09 → SOUTH 18:46
PROVIDERS: ADMIT Physician Assistant; ATTEND Family Medicine
DX: E11.628 Type 2 diabetes mellitus with other skin complications (principal); E11.65 Type 2 diabetes mellitus with hyperglycemia; L73.2 Hidradenitis suppurativa; N61.1 Abscess of the breast and nipple; I10 Essential (primary) hypertension; F17.210 Nicotine dependence, cigarettes, uncomplicated; Z79.4 Long term (current) use of insulin
CPT/HCPCS: 80048; 80053; 80202; 85025; 85651; 87040; 87070; 87186; J0690; J1650; J1815; J3370; J7030; J7050; J7060; 99222; 99231; 99232; 99238; 99283; S1016

== ENCOUNTER 2018-05-04 14:35 | Outpatient (CLI) | payer MEDICARE, OTHER | END 2018-05-04 14:36 | LOC: LAB 14:35 | PROVIDERS: ATTEND Family Medicine | DX: E11.9 Type 2 diabetes mellitus without complications (principal) | CPT/HCPCS: 36415; 83036 ==

== ENCOUNTER 2018-05-21 23:30 | Emergency (ER) | payer MEDICARE, OTHER ==
--- NOTE | 2018-05-21 23:34 | ED Physician Documentation ---
General Adult - HISTORIAN Historian: patient - HPI Stated Complaint: left breast concern Chief Complaint: General Adult Onset: hours (5) Timing: still present Severity: mild Further Comments: yes (She states surgical site had a group of steri strips on the wound and they fell off today exposing an area that is open. the area was previously draining. She has no fever . No pain. Drainage has "nearly stopped") Last known Well Code/Unknown Code: Unknown - ROS CONST: no problems - PAST HX Past History: other (breast cancer ) Immunizations: UTD Allergies/Adverse Reactions: Allergies Allergy/AdvReac Type Severity Reaction Status Date / Time codeine [Codeine] Allergy Verified 03/30/18 21:15 meperidine HCl [From Demerol] Allergy Verified 03/30/18 21:15 morphine Allergy Verified 03/30/18 21:15 Penicillins Allergy Verified 03/30/18 21:15 Home Medications: Ambulatory Orders Medication Instructions Recorded Aspirin [Violette] 81 mg PO DAILY 07/19/14 Albuterol Sulfate [Ventolin HFN] 2.5 inh PO Q4-6 03/30/18 Trazodone HCl 100 mg PO HS 03/30/18 - SOCIAL HX Smoking History: cigarettes - FAMILY HX Family History: No - VITAL SIGNS Vital Signs: Vital Signs Temp Pulse Resp BP Pulse Ox 147/95 04/03/18 11:18 - REVIEWED ASSESSMENTS Nursing Assessment Reviewed: Yes Vitals Reviewed: Yes General Adult Physical Exam - PHYSICAL EXAM GENERAL APPEARANCE: no distress EENT: eye inspection normal NECK: normal inspection RESPIRATORY: no resp distress, chest non-tender, breath sounds normal CVS: reg rate & rhythm, heart sounds normal ABDOMEN: soft, no distension BACK: normal inspection SKIN: warm/dry, other (left breast incision approx 3 cm open area with no drainge noted - no redness around site ) EXTREMITIES: non-tender, normal range of motion, no evidence of injury, no edema NEURO: oriented X3 Discharge Clincal Impression: Abscess of left breast Referrals: Thom Schreiber MD [Primary Care Provider] - 2 Days Comments: 1. Clindaymycin 300 mg take 1 by mouth three times per day 2. Contact surgeon in am 3. See surgeon for follow up 4. Return to ER for any concerns Condition: Stable Disposition: 01 HOME, SELF-CARE Decision to Admit: NO Date of Decison to Admit: 05/21/18 Decision Time: 23:50
[2018-05-21] MEDS ORDERED: CLINDAMYCIN HCL 150 MG CAPSULE PO ONE (23:51)
[2018-05-22 00:25] VITALS: BP 126/61
== END 2018-05-22 00:05 | disposition home or self-care (01) ==
LOC: ED 23:30
DX: N61.1 Abscess of the breast and nipple (principal); B96.1 Klebsiella pneumoniae [K. pneumoniae] as the cause of diseases classified elsewhere; B95.61 Methicillin susceptible Staphylococcus aureus infection as the cause of diseases classified elsewhere; Z16.11 Resistance to penicillins
CPT/HCPCS: 87070; 99282; 99283; A9270

== ENCOUNTER 2018-07-13 13:54 | Outpatient (CLI) | payer MEDICARE, OTHER ==
--- NOTE | 2018-07-14 04:06 | Diagnostic Imaging Report ---
LAMAR CRAVEN [facility] [address] [facility] [address] [address] Report Submission Date: Jul 13, 2018 2:33:21 PM PHYSICIAN ALLERGIST IMMUNOLOGIST Patient Study Name: PAL LANGLEY Date: Jul 13, 2018 2:04:15 PM PHYSICIAN ALLERGIST IMMUNOLOGIST Modality Type: DX Gender: F Description: KNEE 3 VIEWS : 58 Institution: [facility] Physician: LAMAR RCAVEN Left knee. History: Pain for several months. AP and sunrise view of the left knee are submitted. A small spur extends off the lateral compartment of the knee joint. Mild spurring at the femoral patellar articulation is also noted. No acute fracture is seen. No soft tissue abnormality is identified. Impression: Mild degenerative changes. Electronically signed on Jul 13, 2018 2:33:21 PM PHYSICIAN ALLERGIST IMMUNOLOGIST by: Boyd ARRIAGA
== END 2018-07-13 14:15 ==
LOC: LAB 13:54
PROVIDERS: ATTEND Family Medicine
DX: M17.32 Unilateral post-traumatic osteoarthritis, left knee (principal); E11.9 Type 2 diabetes mellitus without complications
CPT/HCPCS: 36415; 73562; 83036

== ENCOUNTER 2018-07-24 03:25 | Emergency (ER) | payer MEDICARE, OTHER ==
[2018-07-24] MEDS ORDERED: IPRATROPIUM/ALBUTEROL SULFATE 3 ML AMPUL.NEB NEB ONE (04:01)
--- NOTE | 2018-07-24 04:01 | ED Physician Documentation ---
General Adult - HISTORIAN Historian: patient - HPI Stated Complaint: cough,congestion Chief Complaint: General Adult Onset: days ago Timing: still present Severity: moderate Further Comments: yes (Pt is a 58 yo female with cough, congestion. Pt was seen by pcp yesterday and started on Tamiflu, though she did not test positive for influenza. Pt has had a cough and has been sob. Pt has hx asthma. Pt took an albuterol HFN a few hours ago, but it did not help. Pt has rib pain from excessive coughing.) - ROS CONST: other (malaise) EYES/ENT: none CVS/RESP: shortness of breath, cough GI/: none MS/SKIN/LYMPH: none - PAST HX Past History: other (chronic pain, cancer, COPD, Depression, DM, HTN, OA) Surgeries/Procedures: (Tonsils and Adenoids, masterctomy), cholecystectomy, other Allergies/Adverse Reactions: Allergies Allergy/AdvReac Type Severity Reaction Status Date / Time codeine [Codeine] Allergy Verified 07/24/18 03:37 meperidine HCl [From Demerol] Allergy Verified 07/24/18 03:37 morphine Allergy Verified 07/24/18 03:37 Penicillins Allergy Verified 07/24/18 03:37 Home Medications: Ambulatory Orders Medication Instructions Recorded Aspirin [Violtete] 81 mg PO DAILY 07/19/14 Albuterol Sulfate [Ventolin HFN] 2.5 inh PO Q4-6 03/30/18 Trazodone HCl 100 mg PO HS 03/30/18 - SOCIAL HX Smoking History: cigarettes - FAMILY HX Family History: No - VITAL SIGNS Vital Signs: Vital Signs Temp Pulse Resp BP Pulse Ox 126/61 05/22/18 00:21 - REVIEWED ASSESSMENTS Nursing Assessment Reviewed: Yes Vitals Reviewed: Yes Progress - Progress Progress: Duoneb HFN Solumedrol 125 mg IM Pulmicort HFN Azithromycin 500 mg po Tessalon 100 mg po in ER. Rx Azithromycin 250 mg. Take one by mouth once daily for 5 days. Rx Prednisone 50 mg. Take one by mouth once daily for 5 days. Start on 07-25-18. Tessalon 100 mg. Take one by mouth every 8 hours as needed for cough. Continue home Albuterol inhaler as directed. - EKG/XRAY/CT XRAY: chest (neg) General Adult Physical Exam - PHYSICAL EXAM GENERAL APPEARANCE: moderate distress EENT: ENT inspection normal, pharynx normal NECK: normal inspection, supple RESPIRATORY: chest non-tender, wheezes CVS: reg rate & rhythm, heart sounds normal ABDOMEN: soft, no organomegaly, normal bowel sounds BACK: normal inspection, no CVA tenderness SKIN: warm/dry, normal color EXTREMITIES: non-tender, normal range of motion, no evidence of injury, no edema NEURO: oriented X3, motor nml Discharge Clincal Impression: COPD Acute bronchitis Qualifiers: Bronchitis organism: unspecified organism Qualified Code(s): J20.9 - Acute bronchitis, unspecified Referrals: Thom Schreiber MD [Primary Care Provider] - Condition: Stable Disposition: 01 HOME, SELF-CARE Decision to Admit: NO Decision Time: 05:28
[2018-07-24] MEDS ORDERED: BUDESONIDE 0.5MG/2ML AMPUL.NEB NEB ONE (04:04)
[2018-07-24] MEDS ORDERED: AZITHROMYCIN 250 MG TABLET PO ONE (04:57)
[2018-07-24] MEDS ORDERED: BENZONATATE 100 MG CAPSULE PO ONE (04:57)
[2018-07-24] MEDS ORDERED: methylPREDNISolone SOD SUCC 125 MG/2 ML VIAL IM ONE (04:57)
[2018-07-24] MEDS ORDERED: ALBUTEROL SULFATE 2.5 MG/3 ML AMPUL.NEB NEB ONE (04:58)
[2018-07-24 05:49] VITALS: BP 128/68
--- NOTE | 2018-07-24 06:36 | Diagnostic Imaging Report ---
JELENA PITTMAN [facility] [address] [facility] [address] [place] [address]. [id number] Report Submission Date: Jul 24, 2018 4:47:48 AM PAPER HANDLER Patient Study Name: PAL LANGLEY Date: Jul 24, 2018 4:03:48 AM PAPER HANDLER Modality Type: DX Gender: F Description: CHEST 2VIEW : 58 Institution: [facility] Physician: JELENA PITTMAN Pa and lateral chest Clinical history :short of breath, Coughing Technique pa and lateral upright Findings: The lung schneider are clear. I see no hilar or mediastinal mass. There is no pleural effusion. There is thoracic spondylosis and cervical fusion. Impression: No acute pulmonary disease Electronically signed on Jul 24, 2018 4:47:48 AM PAPER HANDLER by: Danilo ARRIAGA
[2018-07-24] MEDS ORDERED: BUDESONIDE 0.5MG/2ML AMPUL.NEB NEB SCH (09:00)
== END 2018-07-24 05:45 | disposition home or self-care (01) ==
LOC: ED 03:25
DX: J44.9 Chronic obstructive pulmonary disease, unspecified (principal); J20.9 Acute bronchitis, unspecified; Z72.0 Tobacco use
CPT/HCPCS: 71046; 94640; 96372; 99284; 99285; A9270; J2930; J7626

== ENCOUNTER 2018-09-05 09:33 | Outpatient (CLI) | payer MEDICARE, OTHER ==
[2018-09-05 10:13] LABS: MEAN CORPUSCULAR HEMOGLOBIN 28.4 pg (28.0-34.0)
[2018-09-05 10:14] LABS: BASOPHILS % 1.1 % (0.0-1.5); EOSINOPHILS % 2.3 % (0.0-6.8); MONOCYTES % 5.4 % (0.0-11.0); NEUTROPHILS # 4.3 # k/uL (1.4-7.7)
[2018-09-05 10:28] LABS: eGFR (Non-African) > 60
== END 2018-09-05 09:35 ==
LOC: LAB 09:33
PROVIDERS: ATTEND Family Medicine
DX: I10 Essential (primary) hypertension (principal); E11.9 Type 2 diabetes mellitus without complications
CPT/HCPCS: 36415; 80053; 83036; 85025

== ENCOUNTER 2018-11-08 11:03 | Outpatient (CLI) | payer MEDICARE, OTHER ==
[2018-11-19 09:21] LABS: BASOPHILS % 0.6 % (0.0-1.5); NEUTROPHILS # 4.6 # k/uL (1.4-7.7)
== END 2018-11-08 11:05 ==
LOC: LAB 11:03
PROVIDERS: ATTEND Family Medicine
DX: E11.9 Type 2 diabetes mellitus without complications (principal); D50.9 Iron deficiency anemia, unspecified
CPT/HCPCS: 36415; 83036; 85025

== ENCOUNTER 2019-02-04 16:07 | Outpatient (CLI) | payer MEDICARE, OTHER ==
--- NOTE | 2019-02-06 14:49 | Diagnostic Imaging Report ---
LAMAR CRAVEN [facility] [address] [facility] [address] [address] Report Submission Date: Feb 04, 2019 4:45:27 PM CDT Patient Study Name: PAL LANGLEY Date: Feb 04, 2019 4:06:39 PM CDT Modality Type: DX Gender: F Description: KNEE 3 VIEWS : 58 Institution: [facility] Physician: LAMAR CRAVEN Examination: Plain film right knee History: ACUTE KNEE PAIN, Findings: 3 views of the right knee demonstrates total knee replacement hardware in place. No fracture. No dislocation. No joint effusion. No soft tissue irregularity. Impression: Total knee replacement in place. No acute appearing osseous abnormality Electronically signed on Feb 04, 2019 4:45:27 PM CDT by: Savage ARRIAGA
== END 2019-02-04 16:10 ==
LOC: RAD 16:07
PROVIDERS: ATTEND Family Medicine
DX: M25.561 Pain in right knee (principal)
CPT/HCPCS: 73562

== ENCOUNTER 2019-03-25 10:19 | Outpatient (CLI) | payer MEDICARE, OTHER ==
[2019-03-25 10:47] LABS: A1C 11.8 % (<5.7)
== END 2019-03-25 10:24 ==
LOC: LAB 10:19
PROVIDERS: ATTEND Family Medicine
DX: E11.9 Type 2 diabetes mellitus without complications (principal); E78.00 Pure hypercholesterolemia, unspecified
CPT/HCPCS: 36415; 80061; 83036

== ENCOUNTER 2019-03-29 13:55 | Outpatient (CLI) | payer MEDICARE, OTHER | END 2019-03-29 14:05 | LOC: OUT 13:55 | PROVIDERS: ATTEND Family Medicine | DX: E11.9 Type 2 diabetes mellitus without complications (principal) | CPT/HCPCS: 97802 ==